=== PATIENT | male | born 1965 | race American Indian/Alaskan Native ===

== ENCOUNTER 2016-09-07 15:22 | Outpatient (CLI) | payer BC | END 2016-09-07 15:23 | disposition home or self-care (01) | LOC: LABHHL 15:22 | PROVIDERS: ATTEND Internal Medicine Gastroenterology | DX: Z12.11 Encounter for screening for malignant neoplasm of colon (principal); R19.7 Diarrhea, unspecified | CPT/HCPCS: 88305 ==